=== PATIENT | female | born 1995 | race Caucasian/White ===

== ENCOUNTER → 2018-07-03 | Outpatient (CLI) | payer BC | LOC: BMCIMAGING 14:29 | PROVIDERS: ATTEND Family Medicine | DX: M79.89 Other specified soft tissue disorders (principal) ==

== ENCOUNTER → 2019-02-09 | Outpatient (CLI) | payer BC | LOC: BMCIMAGING 10:32 | PROVIDERS: ATTEND Family Medicine | DX: M25.562 Pain in left knee (principal) ==